=== PATIENT | female | born 1970 | race Caucasian/White ===

== ENCOUNTER 2018-10-21 11:40 | Day surgery (SDC) | payer MEDICAID, OTHER ==
[~2018-10-21 11:40] MED LIST: DEXAMETHASONE SODIUM PHOSPHATE 10 MG/ML VIAL ONE; KETOROLAC TROMETHAMINE 30 MG/1ML VIAL ONE; LACTATED RINGERS 1,000 ML IV.SOLN IV ONE; LIDOCAINE HCL 2% PF 100MG/5ML VIAL IJ ONE; MIDAZOLAM HCL 2 MG/2 ML VIAL ONE; PROPOFOL 200 MG/20 ML VIAL IV ONE; SEVOFLURANE 250 ML LIQUID IH ONE; fentaNYL CITRATE/PF 100 MCG/2 ML INJ. ONE
== END 2018-10-21 14:40 | disposition home or self-care (01) ==
LOC: OPSURG 11:40
PROVIDERS: ATTEND Specialist
DX: M99.05 Segmental and somatic dysfunction of pelvic region (principal); M70.61 Trochanteric bursitis, right hip; M99.06 Segmental and somatic dysfunction of lower extremity; M47.816 Spondylosis without myelopathy or radiculopathy, lumbar region; M99.01 Segmental and somatic dysfunction of cervical region
CPT/HCPCS: 22505; 27275; J1885; J2001; J2250; J2704; J3010; J7120; 27198

== ENCOUNTER 2018-10-22 11:46 | Day surgery (SDC) | payer MEDICAID, OTHER ==
[~2018-10-22 11:46] MED LIST changes: -SEVOFLURANE 250 ML LIQUID IH ONE
== END 2018-10-22 15:15 | disposition home or self-care (01) ==
LOC: OPSURG 11:46
PROVIDERS: ATTEND Specialist
DX: M99.05 Segmental and somatic dysfunction of pelvic region (principal); M70.61 Trochanteric bursitis, right hip; M99.06 Segmental and somatic dysfunction of lower extremity; M47.816 Spondylosis without myelopathy or radiculopathy, lumbar region; M99.01 Segmental and somatic dysfunction of cervical region
CPT/HCPCS: 22505; 27198; 27275; J1885; J2001; J2250; J2704; J3010; J7120

== ENCOUNTER 2018-10-23 11:45 | Day surgery (SDC) | payer MEDICAID, OTHER ==
[~2018-10-23 11:45] MED LIST changes: +ONDANSETRON HCL/PF 4 MG/ 2ML VIAL ONE; +SEVOFLURANE 250 ML LIQUID IH ONE
== END 2018-10-23 14:50 | disposition home or self-care (01) ==
LOC: OPSURG 11:45
PROVIDERS: ATTEND Specialist
DX: M99.05 Segmental and somatic dysfunction of pelvic region (principal); M70.61 Trochanteric bursitis, right hip; M99.06 Segmental and somatic dysfunction of lower extremity; M47.816 Spondylosis without myelopathy or radiculopathy, lumbar region; M99.01 Segmental and somatic dysfunction of cervical region
CPT/HCPCS: 22505; 27198; 27275; J1885; J2001; J2250; J2405; J2704; J3010; J7120